=== PATIENT | male | born 1955 | race Hispanic/Latino ===

== ENCOUNTER → 2018-02-17 | Outpatient (CLI) | payer OTHER | END | disposition home or self-care (01) | LOC: OIH 14:19 | PROVIDERS: ATTEND Internal Medicine | DX: R06.02 Shortness of breath (principal); M47.895 Other spondylosis, thoracolumbar region | CPT/HCPCS: 71046 ==

== ENCOUNTER 2022-05-03 10:00 | Observation (INO) | payer OTHER ==
[2022-05-01 14:09] LABS: BASOPHILS % (AUTO) 0.6 % (0.0-5.0); EOSINOPHILS % (AUTO) 3.6 % (0.0-8.0); HEMATOCRIT 44.8 % (42-54); LYMPHOCYTES % (AUTO) 27.9 % (21.0-51.0); MEAN CORPUSCULAR HEMOGLOBIN 31.4 pg (27.0-33.0); MEAN CORPUSCULAR HGB CONC 33.3 g/dL (32.0-36.0); MEAN CORPUSCULAR VOLUME 94.5 fL (79-99); MONOCYTES % (AUTO) 9.3 % (3.0-13.0); NEUTROPHILS % (AUTO) 58.1 % (40.0-77.0); PLATELET COUNT (AUTO) 188 K/uL (130-400); RED BLOOD CELL COUNT(AUTO) 4.74 MIL/uL (4.50-6.20); WHITE BLOOD COUNT (AUTO) 8.1 K/uL (4.8-10.8)
[2022-05-01 14:13] LABS: APPEARANCE,URINE CLEAR (CLEAR); BILIRUBIN,URINE NEGATIVE (NEGATIVE); COLOR,URINE YELLOW (YELLOW); GLUCOSE, URINE (UA) NEGATIVE (NEGATIVE); KETONES,URINE NEGATIVE (NEGATIVE); LEUKOCYTE ESTERASE ,URINE NEGATIVE (NEGATIVE); NITRATE,URINE NEGATIVE (NEGATIVE); OCCULT BLOOD,URINE MODERATE (NEGATIVE); PH,URINE 5.5 (5.0-8.0); PROTEIN,URINE NEGATIVE (NEGATIVE); UROBILINOGEN,URINE 0.2 mg/dL (0.2-1.0)
[2022-05-01 14:16] LABS: CREATININE 1.2 mg/dL (0.5-1.5); POTASSIUM 4.3 mmol/L (3.5-5.1)
[2022-05-01 14:22] LABS: INR 0.93 (0.85-1.15); PROTHROMBIN TIME 9.5 SEC (9.6-11.6)
[2022-05-01 14:24] LABS: PARTIAL THROMBOPLASTIN TIME 27.5 SEC (26.3-35.5)
[2022-05-01 14:35] LABS: RBC,URINE 0-1 /HPF (0-1)
[2022-05-01 14:36] LABS: BACTERIA,URINE Rare /HPF (None Seen); SQUAMOUS EPITHELIAL CELL,UR Rare /HPF (0-2)
[2022-05-01 14:38] VITALS: BP 121/68
[2022-05-02 11:30] VITALS: BP 141/75
[~2022-05-03] VITALS: Ht 170.2 cm; Wt 88.3 kg
[2022-05-03] VITALS (11 sets, daily range): BP systolic 102–150; BP diastolic 64–96
[~2022-05-03 10:00] MED LIST: 0.9%NACL 1000ML 1,000 ML IV ONE; APIX5TAB PO; CLOP75TA32 PO; CYAN100099 PO; ESCI20TA38 PO; EVOL140S2 SQ; FLUT250D2 IH; IRON18TA PO; ISOS30TA92 PO; METF-444 PO; METO75TA PO; NITR0.4T50 SL; PANT40TA54 PO; ROSU20TA31 PO; UBID100C10 PO; VITAD50000 PO
[2022-05-03] MEDS ORDERED: 0.9%NACL 1000ML 1,000 ML IV ONE (12:28)
[2022-05-03] MEDS ORDERED: LIDOCAINE HCL 400MG/20ML VIAL ONE (14:03)
[2022-05-03] MEDS ORDERED: IOHEXOL 350 MG/ML 100ML INFUS..BTL IV ONE ×2 (14:03→15:18)
[2022-05-03] MEDS ORDERED: FENTANYL CITRATE PF 50 MCG/1 ML 2ML VIAL ONE (14:03)
[2022-05-03] MEDS ORDERED: MIDAZOLAM HCL 1 MG/ML 2ML VIAL ONE (14:03)
[2022-05-03] MEDS ORDERED: BIVALIRUDIN 250 MG/VIAL IV ONE (15:10)
[2022-05-03] MEDS ORDERED: CLOPIDOGREL 300MG TAB ONE (15:39)
[2022-05-03] MEDS ORDERED: ASPIRIN 325MG EC TAB PO ONE (15:39)
[2022-05-03] MEDS ORDERED: 0.9%NACL 1000ML 1,000 ML IV SCH ×2 (16:00)
[2022-05-03] MEDS ORDERED: NITROGLYCERIN 0.4 MG SL TAB SL PRN (16:00)
[2022-05-03] MEDS ORDERED: DEXTROSE 50%-WATER 50 ML DISP.SYRIN IV PRN (16:00)
[2022-05-03] MEDS ORDERED: PHARMACY COMMUNICATION MISC SCH (16:30)
[2022-05-03] MEDS: INSULIN HUMULIN R 100 UNIT/ML 3ML SQ SCH ×2 (16:30→20:29)
[2022-05-03] MEDS: BUDESONIDE 0.5 MG/2 ML INH IH SCH (18:46)
[2022-05-03] MEDS: METOPROLOL TARTRATE 25 MG TAB PO SCH (20:24)
[2022-05-03] MEDS: APIXABAN 5 MG TABLET PO SCH (20:24)
[2022-05-03] MEDS ORDERED: ATORVASTATIN 40 MG TABLET PO SCH (21:00)
[2022-05-04 03:49] VITALS: BP 144/73
[2022-05-04 03:57] LABS: HEMATOCRIT 44.7 % (42-54); MEAN CORPUSCULAR HEMOGLOBIN 31.4 pg (27.0-33.0); MEAN CORPUSCULAR HGB CONC 33.1 g/dL (32.0-36.0); MEAN CORPUSCULAR VOLUME 94.7 fL (79-99); RED BLOOD CELL COUNT(AUTO) 4.72 MIL/uL (4.50-6.20); RED CELL DISTRIBUTION WIDTH 12.9 % (11.0-15.5); WHITE BLOOD COUNT (AUTO) 10.4 K/uL (4.8-10.8)
[2022-05-04 04:03] LABS: CREATININE 1.2 mg/dL (0.5-1.5); POTASSIUM 4.2 mmol/L (3.5-5.1)
[2022-05-04] MEDS: INSULIN HUMULIN R 100 UNIT/ML 3ML SQ SCH ×2 (06:10→11:30)
[2022-05-04] MEDS: BUDESONIDE 0.5 MG/2 ML INH IH SCH (06:22)
[2022-05-04 08:00] VITALS: BP 143/77
[2022-05-04] MEDS: METOPROLOL TARTRATE 25 MG TAB PO SCH (08:59)
[2022-05-04] MEDS ORDERED: CYANOCOBALAMIN (VITAMIN B-12) 1,000 MCG TABLET PO SCH (09:00)
[2022-05-04] MEDS ORDERED: ISOSORBIDE MONO 30MG SR TAB PO SCH (09:00)
[2022-05-04] MEDS ORDERED: ASPIRIN 81MG CHEW TAB PO SCH (09:00)
[2022-05-04] MEDS ORDERED: CLOPIDOGREL 75MG TAB PO SCH (09:00)
[2022-05-04] MEDS ORDERED: FERROUS SULFATE 325 MG TABLET.DR PO SCH (09:00)
[2022-05-04] MEDS ORDERED: PANTOPRAZOLE 40 MG TAB DR PO SCH (09:00)
[2022-05-04] MEDS ORDERED: UBIDECARENONE 100 MG PO SCH (09:00)
[2022-05-04] MEDS: APIXABAN 5 MG TABLET PO SCH (09:00)
[2022-05-04] MEDS ORDERED: CITALOPRAM 20 MG TABLET PO SCH (09:00)
[2022-05-04 12:00] VITALS: BP 130/68
[2022-05-04] MEDS ORDERED: CLOP75TA32 PO (14:43)
[2022-05-04] MEDS ORDERED: APIX5TAB PO (14:43)
[2022-05-04] MEDS ORDERED: ASPI-1005 PO (14:43)
[2022-05-10] MEDS ORDERED: **HM**Cholecalciferol (Vitamin D3) 50,000 UNITS PO SCH (09:00)
[2022-06-02] MEDS ORDERED: EVOLOCUMAB 140 MG SQ SCH (09:00)
== END 2022-05-04 15:51 | disposition home or self-care (01) ==
LOC: DAH 10:00 → DAHIP 10:01 → 2DH 16:33
PROVIDERS: ADMIT Internal Medicine; ATTEND Internal Medicine
DX: I25.110 Atherosclerotic heart disease of native coronary artery with unstable angina pectoris (principal); I10 Essential (primary) hypertension; I48.0 Paroxysmal atrial fibrillation; E78.5 Hyperlipidemia, unspecified; Z79.899 Other long term (current) drug therapy
CPT/HCPCS: 80048 ×2; 85025; 85610; 85730; 81001; 36415 ×2; 71045; 93005; 93455; 82948 ×5; 94640 ×2; 94664; 85027; A4215; A4223 ×3; A4222; A4221; A4663; A4216; A4606; J7030 ×2; C1894 ×2; C1887 ×2; C1760; C1769; C1874; C1725; Q9965 ×2; G0378 ×24; J3010; J3490; J2250; J1644 ×2; J0583; Q9967 ×2; C9600; 99156; 99157

== ENCOUNTER → 2024-08-25 | Outpatient (CLI) | payer OTHER ==
[~2024-08-25] MED LIST changes: -0.9%NACL 1000ML 1,000 ML IV ONE; +ASPI-1005 PO; -ROSU20TA31 PO; +ROSU20TA98 PO
--- NOTE | 2024-08-25 13:39 | HMCIMG ---
CT CHEST W/O CONTRAST REASON: COPD COMPARISON: None. TECHNIQUE: Multiple sequential axial images of the chest were obtained from the thoracic inlet through the upper pole of the kidneys without intravenous contrast administration. FINDINGS: 1 chronic-appearing atelectasis left lung base. Lungs are otherwise clear. There is normal-appearing pulmonary interstitial pattern. There are no focal masses or infiltrates. Heart size is normal. There is no hilar or mediastinal lymphadenopathy. There is been previous median sternotomy and valve replacement procedure. Chest wall structures appear unremarkable as do visualized upper abdominal structures. IMPRESSION: 1. No acute finding. CT was performed with one or more following dose reduction techniques: automated exposure control, adjustment of the mA and kv according to patient's size, or use of a iterative reconstruction technique.
== END | disposition home or self-care (01) ==
LOC: RAH 12:48
PROVIDERS: ATTEND Internal Medicine
DX: J44.9 Chronic obstructive pulmonary disease, unspecified (principal); R06.02 Shortness of breath; J90 Pleural effusion, not elsewhere classified
CPT/HCPCS: 71250

== ENCOUNTER → 2024-11-16 | Outpatient (CLI) | payer OTHER ==
[~2024-11-16] VITALS: Ht 170.2 cm; Wt 94.9 kg
[~2024-11-16] MED LIST changes: +AMIO200T68 PO; +ATOR10TA69 PO; +ERGO500093 PO; +GABA-529 PO; +METO50TA18 PO
[2024-11-16 14:11] LABS: BASOPHILS # (AUTO) 0.04 K/uL (0.00-0.20); BASOPHILS % (AUTO) 0.4 % (0.0-5.0); EOSINOPHILS # (AUTO) 0.04 K/uL (0.00-0.70); EOSINOPHILS % (AUTO) 0.4 % (0.0-8.0); HEMATOCRIT 46.7 % (42-54); IMMATURE GRANULOCYTE ABSOLUTE 0.08 K/uL (0-1); LYMPHOCYTES # (AUTO) 1.6 K/uL (1.0-4.8); LYMPHOCYTES % (AUTO) 16.7 % (21.0-51.0); MEAN CORPUSCULAR HEMOGLOBIN 30.5 pg (27.0-33.0); MEAN CORPUSCULAR HGB CONC 31.7 g/dL (32.0-36.0); MEAN CORPUSCULAR VOLUME 96.3 fL (79-99); MONOCYTES # (AUTO) 0.5 K/uL (0.1-1.0); MONOCYTES % (AUTO) 5.3 % (3.0-13.0); NEUTROPHILS # (AUTO) 7.2 K/uL (1.8-7.7); NEUTROPHILS % (AUTO) 76.4 % (40.0-77.0); PLATELET COUNT (AUTO) 207 K/uL (130-400); RED BLOOD CELL COUNT(AUTO) 4.85 MIL/uL (4.50-6.20); RED CELL DISTRIBUTION WIDTH 14.3 % (11.0-15.5); WHITE BLOOD COUNT (AUTO) 9.5 K/uL (4.8-10.8)
[2024-11-16 14:19] LABS: INR <= 0.93 (0.85-1.15); PROTHROMBIN TIME 9.8 SEC (9.6-11.6)
[2024-11-16 14:21] LABS: CREATININE 1.2 mg/dL (0.5-1.3); POTASSIUM 4.6 mmol/L (3.5-5.1)
[2024-11-16 14:29] VITALS: BP 135/71; PULSE 63; RESP 15; TEMP 98.8
--- NOTE | 2024-11-16 14:57 | EKG ---
[facility] Test Date: 2024-11-16 Test Time: 14:53:28 Pat Name: CHIO JENKINS Department: [facility] Room: Gender: M [employer]: [id number] : [id number] Requested By: MARYLU SANCHEZ Order Number: [id number] Reading MD: Jc Galvez Measurements Intervals [place] Rate: 61 P: 60 MO: 131 QRS: 68 QRSD: 92 T: 119 QT: 476 QTc: 481 Interpretive Statements Sinus rhythm Abnormal T, consider ischemia, lateral leads Compared to ECG 05/01/2022 14:01:42 No significant changes Electronically Signed On 11-17-2024 11:53:18 [employer] by Jc Galvez Please click the below link to view image of tracing.
== END ==
LOC: EDSTATUS 13:00 → DAH 13:17
PROVIDERS: ATTEND Internal Medicine Interventional Cardiology
DX: Z01.818 Encounter for other preprocedural examination (principal); R55 Syncope and collapse; Z87.891 Personal history of nicotine dependence; Z82.49 Family history of ischemic heart disease and other diseases of the circulatory system; Z82.3 Family history of stroke; Z79.899 Other long term (current) drug therapy
CPT/HCPCS: 36415; 80048; 85025; 85610; 93005